=== PATIENT | male | born 1980 | race Caucasian/White ===

== ENCOUNTER 2025-11-20 23:14 | Emergency (ER) | payer MEDICAID, SELFPAY ==
--- NOTE | ~2025-11-20 | US_ITS ---
EXAMINATION: US ABDOMEN LIMITED HISTORY: RUQ; Gall Bladder; N/V; Tenderness TECHNIQUE: Real-time grayscale ultrasound imaging of the right upper quadrant was performed and images were reviewed. COMPARISON: Correlation is made with a CT of the abdomen performed earlier in the day. FINDINGS: Liver: The right lobe of the liver measures 19.2 cm in size. The left lobe of the liver measures 11.3 cm in size. The liver demonstrates increased echotexture, consistent with steatosis. No focal mass or intrahepatic biliary ductal dilatation is identified. There is normal hepatopedal flow in the portal vein. Gallbladder and biliary tree: The gallbladder is unremarkable, without evidence of calculi, wall thickening, or pericholecystic fluid. There is no sonographic Cavanaugh sign. The common bile duct is normal in caliber measuring 3 mm in diameter. Right Kidney: The right kidney measures 13.0 cm in length. The right kidney is unremarkable, without evidence of masses, hydronephrosis, or calculi. Pancreas: The pancreatic head, neck, and body are unremarkable. The pancreatic tail is obscured by bowel gas. Abdominal aorta and inferior vena cava: The visualized portions of the abdominal aorta and inferior vena cava are normal in caliber. There is no free fluid in the right upper quadrant. US/US abdomen limited IMPRESSION: Hepatomegaly and hepatic steatosis. No evidence of cholelithiasis. Electronically signed by: Murali Baig MD 11/21/2025 08:16 AM [facility]
--- NOTE | ~2025-11-20 | CT_ITS ---
CLINICAL HISTORY: RLQ Pain; Tenderness CT abdomen and pelvis with contrast Comparison: CT - CT ABDOMEN PELVIS W IV CON - 11/21/25 04:21 EST Findings: Dependent atelectasis. Hepatomegaly with fatty infiltration of the liver. Mild splenomegaly. The gallbladder, pancreas, and adrenal glands are unremarkable. No hydronephrosis or hydroureter is noted. Subcentimeter low-density foci are noted within the kidneys which are too small to characterize. No bowel obstruction, pneumoperitoneum, or pneumatosis. Fat containing umbilical hernia. Small retroperitoneal lymph nodes. Small hiatal hernia. Diverticulosis without evidence of diverticulitis. No evidence of acute appendicitis. Mild prostate gland enlargement. Degenerative change involving the skeletal system without evidence of acute abnormality. Normal caliber aorta. Arteriomegaly involving the celiac axis with hazy density within the surrounding fat suggesting possible vasculitis. No high-grade stenosis is noted. Opacification is noted of the vasculature. The SMA and SHANIKA appear patent. IMPRESSION: 1. 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 Correlate with pancreatic enzymes. 2. Hepatosplenomegaly with fatty infiltration of the liver. 3. Fat containing umbilical hernia. This document has been electronically signed by: Chip Cavanaugh MD on 11/21/2025 08:09:42
[2025-11-20 23:18] VITALS: BP 154/79; PULSE 83; RESP 20; TEMP 36.4; O2SAT 96; BMI 46.8
[2025-11-20 23:40] LABS: Hematocrit 45.0 % (42.0-52.0); Hemoglobin 15.7 g/dl (14.0-18.0); Imm Gran Abs Auto 0.04 X10*3/uL (0.00-0.03); Imm Gran Pct Auto 0.4 % (0.0-0.4); Lymphocytes Absolute Auto 3.4 X10*3/uL (1.2-4.9); MANUAL DIFF FLAG NO; Mean Corpuscular HGB Conc 34.9 g/dl (31.0-36.0); Mean Corpuscular Hemoglobin 30.7 pg (27.0-33.0); Mean Corpuscular Volume 88.1 fL (80.0-98.0); NRBC Abs Auto 0.000 X10*3/uL (0.0-0.012); NRBC Pct Auto 0.0 /100WBC (0.0-0.2); Platelet Count 226 X10*3/uL (160-400); Red Blood Count 5.11 X10*6/uL (4.60-5.80); White Blood Count 10.4 X10*3/uL (4.8-10.8)
[2025-11-20 23:54] LABS: Alanine Aminotransferase 55 U/L (0-40); Albumin Level 4.5 g/dL (3.5-5.0); Alkaline Phosphatase 68 U/L (39-117); Anion Gap 14 (12-20); Aspartate Amino Transferase 32 U/L (5-37); Blood Urea Nitrogen 12 mg/dL (9-16); Calcium 8.9 mg/dL (8.4-10.2); Carbon Dioxide 25 mmol/L (22-29); Chloride 106 mmol/L (96-108); Creatinine Clr Calc Pharmacy 127.5; Estimated Glomerular Filt Rate > 60; Potassium 4.0 mmol/L (3.3-5.1); Sodium 141 mmol/L (135-145); Total Protein 7.5 g/dL (6.5-8.0)
[2025-11-21 03:14] VITALS: BP 146/89; PULSE 75; RESP 16; TEMP 36.8; O2SAT 97
--- OUTSIDE RECORDS SUMMARY | 2025-11-21 03:50 | XMS_ITS | Clinical Summary ---
Author Organization [employer] Address [address] [place] [address] [address] [place] [address] Care Team Providers Care Net Sql Developer Name Role Phone Unavailable Primary Care Provider Unavailabl e Social History Tobacco Use Types Packs/Day Years Used Date Smoking Tobacco: Never Assessed Sex and Gender Information Value Date Recorded Sex Assigned at Not on file Legal Sex Male 9:17 PM EDT Gender Identity Not on file Sexual Orientation Not on file Plan of Treatment Health Maintenance Due Date Last Done Comments Depression Screening 1980 HIV Screening 1980 Lipid Panel 1980 SDOH Screening 1980 Disability Screening 1980 Alcohol/Substance Use Screening 1992 Tobacco Screening 1992 Family Planning (PISQ) 1995 HPV Vaccines (1 - Male 3-dos e series) 1995 Hepatitis C Screening 1998 DTaP/Tdap/Td Vaccines (1 - Tdap) 1999 Hepatitis B Vaccines (1 of 3 - 19+ 3-dose series) 1999 COVID-19 Vaccine (1 - 2024-2 6 season) 2025 Influenza Vaccine (#1) 2025 Zoster Vaccines (1 of 2) 2030 RSV Patients and Pa tients Aged 60 years or older (1 - 1-dose 75+ series) 2055 HIB Vaccines Aged Out No longer eligi ble based on patient's age to complete this topic Hepatitis A Vaccines Aged Out No long er eligible based on patient's age to complete this topic IPV Vaccines Aged Out No longer eligi ble based on patient's age to complete this topic Meningococcal B Vaccine Aged Out No l onger eligible based on patient's age to complete this topic Meningococcal Vaccine Aged Out No aldo rosario eligible based on patient's age to complete this topic Pneumococcal Vaccine: Pediat rics (0 to 5 Years) and At-Risk Patients (6 to 49) Years Aged Out No longer eligible b ased on patient's age to complete this topic RSV under 20 months Aged Out No longe r eligible based on patient's age to complete this topic Rotavirus Vaccines Aged Out No longer eligible based on patient's age to complete this topic
--- NOTE | 2025-11-21 04:01 | ED_ITS ---
HPI - Abdominal Pain General Chief Complaint: Abdominal Pain Stated Complaint: abd pain Time Seen by Provider: 11/21/25 03:55 Source: patient Mode of arrival: ambulatory Limitations: no limitations History of Present Illness ED Provider: Grzegorz ESPINAL HPI narrative: The patient is a 44-year-old male with a history of appendectomy and gastritis, presenting to the Emergency Department with waxing and waning mid-epigastric abdominal pain that increased on Thursday after eating fatty food (barbecue ribs) at his son?s birthday alliance party. He describes the pain as a constant 6?7/10 that increases with eating and also deep respiration. Patient reports the pain occasionally radiates to the back/right flank. Pain also increases with lying flat. The patient denies any recent fall or other trauma, denies recent sick contacts. He reports associated nonbloody vomiting on Thursday and again today, prompting ED evaluation. He denies associated fever, diarrhea, hematemesis, melena, urinary symptoms, cough, hemoptysis, pleurisy, or shortness of breath. He reports a history of intermittent acid reflux for which he takes omeprazole as needed. Surgical history is significant for appendectomy in 1994. He takes no daily medications, denies alcohol and tobacco use. Related Data Previous Rx's ?Medication ?Instructions ?Recorded aluminum-mag hydroxide-simethicone 10 ml PO TID PRN in digestion 11/21/25 400 mg-400 mg-40 mg/5 mL oral susp #3,000 mL (Maalox Maximum Strength) omeprazole 40 mg capsule,delayed 40 mg PO DAILY #20 ca ps 11/21/25 release Allergies Allergy/AdvReac Type Severity Reaction Status Date / Time No Known Allergies Allergy Verified 11/20/25 23:23 Review of Systems Review of Systems Yes all other systems are reviewed and are negative [facility] Social History Social History Smoked in Last 30 Days: No Use of substances other than those prescribed or required for medical reasons: No Advance Directives: No Advance Directives Information Provided: Yes Physical Exam ED Vital Signs: Vital Signs - 24 hr 11/20/25 23:18 11/21/25 03:14 11/21/25 05:23 Temperature 97.6 F 98.2 F 98.3 F Pulse Rate 83 75 68 Respiratory Rate 20 16 16 Blood Pressure 154/79 H 146/89 H 133/68 Pulse Oximetry 96 97 93 Oxygen Delivery Method Room Air Room Air Room Air 11/21/25 08:39 Temperature 97.9 F Pulse Rate 70 Respiratory Rate 16 Blood Pressure 148/84 H Pulse Oximetry 95 Oxygen Delivery Method Room Air BMI result Body Mass Index 46.8 CONSTITUTIONAL: The patient appears non-toxic, well nourished and in no acute distress. Vital signs as documented. HEAD: Atraumatic, normocephalic. EYES: EOMs grossly intact, pupils equal, conjunctiva clear, no exudate. ENT: Nares patent, no discharge. Airway patent, no audible stridor, visible mucosa is pink and moist without noted lesions. NECK: Trachea is midline, no obvious masses or gross abnormalities. CHEST: Symmetric movement, normal appearance. LUNGS: LS present and CTAB, no w/r/r. Non-labored work of breathing. CARDIAC: Regular Rhythm, S1/S2 appreciated, no murmurs, rubs or gallops. ABDOMEN: Abdomen soft x4 quadrants, moderate tenderness of the right upper and lower quadrants and epigastrium, negative rebound, negative Cavanaugh's, no palpable masses or organomegaly. : Deferred. EXTREMITIES: Normal tone, moves all extremities spontaneously without reported pain. No obvious acute injury or deformity noted. NEURO: Alert and oriented x3, CN II-XII appear grossly intact. Cerebellar Functioning grossly intact. No obvious sensory or motor deficits. Speech clear and appropriate. PSYCH: normal affect, appropriate eye contact, fluid speech, with appropriate response to questioning. No reported suicidality or homicidality. SKIN: Warm, dry, color appropriate, normal turgor. No rashes noted. Course Reevaluation(s) Reevaluation #1: 44-year-old male came in for evaluation of epigastric pain after eating a fatty food, ultrasound shows no acute gallbladder obstructive disease or stones, CT of the abdomen and pelvis reveals the following: . 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 Correlate with pancreatic enzymes. 2. Hepatosplenomegaly with fatty infiltration of the liver. 3. Fat containing umbilical hernia. Not sure the significance of the above finding on a CT case discussed with Dr. Davis ( vascular taxation accountant) who recommended if the patient has no pain he can be discharged to follow-up with him as an outpatient. Also patient should follow- up with GI. Will start on omeprazole, patient was instructed to avoid eating fatty food. Time: 09:16 Medical Decision Making Medical Decision Making MDM Narrative: 4:43 AM 11/21/2025 (Ene ESPINAL): The patient is a 44-year-old male with a history of appendectomy and gastritis, presenting to the Emergency Department with waxing and waning mid-epigastric abdominal pain that increased on Thursday after eating fatty food (barbecue ribs) at his son?s birthday alliance party. He describes the pain as a constant 6?7/10 that increases with eating and also deep respiration. Patient reports the pain occasionally radiates to the back/right flank. Pain also increases with lying flat. The patient denies any recent fall or other trauma, denies recent sick contacts. He reports associated nonbloody vomiting on Thursday and again today, prompting ED evaluation. He denies associated fever, diarrhea, hematemesis, melena, urinary symptoms, cough, hemoptysis, pleurisy, or shortness of breath. He reports a history of intermittent acid reflux for which he takes omeprazole as needed. Surgical history is significant for appendectomy in 1994. He takes no daily medications, denies alcohol and tobacco use. On exam patient has mild tenderness of the right upper and lower quadrants, and the epigastrium. Negative CVAT bilaterally. The patient is nontoxic appearing. The patient's laboratory evaluation is reassuring, no leukocytosis, anemia, electrolyte abnormality, or ROBERTO CARLOS. The patient's LFTs are largely unremarkable with the exception of ALT 55. The patient's urinalysis shows trace blood, no evidence of infection. The patient will be sent for CT abdomen and pelvis and we will add on lipase. We will treat patient's symptoms with IV fluids and Toradol while awaiting results of imaging. Admission/Observation Consideration of admission/observation: Escalation of care including admission/observation considered Lab Data MDM Lab Attestation statement: I reviewed the patient's lab results. 11/20/25 23:35 11/20/25 23:35 Labs: Lab Results 11/20/25 11/21/25 Range/Units 23:35 04:17 WBC 10.4 (4.8-10.8) X10*3/uL RBC 5.11 (4.60-5.80) X10*6/uL Hgb 15.7 (14.0-18.0) g/dl Hct 45.0 (42.0-52.0) % MCV 88.1 (80.0-98.0) fL MCH 30.7 (27.0-33.0) pg MCHC 34.9 (31.0-36.0) g/dl RDW 12.7 (11.0-16.0) % Plt Count 226 (160-400) X10*3/uL MPV 10.0 (9.4-12.4) fL Immature Gran % (Auto) 0.4 (0.0-0.4) % Neut % (Auto) 54.8 (45-73) % Lymph % (Auto) 32.7 (20-40) % Sharkey % (Auto) 8.4 (2-11) % Eos % (Auto) 2.7 (0-4) % Baso % (Auto) 1.0 (0-2) % Lymph # (Auto) 3.4 (1.2-4.9) X10*3/uL Sharkey # (Auto) 0.9 (0.1-1.2) X10*3/uL Eos # (Auto) 0.3 (0.0-0.4) X10*3/uL Baso # (Auto) 0.1 (0.0-0.2) X10*3/uL Abs Immat Gran (auto) 0.04 H (0.00-0.03) X10*3/uL Absolute Neuts (auto) 5.7 (2.0-8.3) x10*3/uL Absolute Nucleated RBC 0.000 (0.0-0.012) X10*3/uL Nucleated RBC % (auto) 0.0 (0.0-0.2) /100WBC Sodium 141 (135-145) mmol/L Potassium 4.0 (3.3-5.1) mmol/L Chloride 106 (96-108) mmol/L Carbon Dioxide 25 (22-29) mmol/L Anion Gap 14 (12-20) BUN 12 (9-16) mg/dL Creatinine 0.95 (0.5-1.4) mg/dL Estim Creat Clear Calc 127.5 Estimated GFR > 60 Random Glucose 105 (60-115) mg/dL Calcium 8.9 (8.4-10.2) mg/dL Total Bilirubin 0.8 (0.0-1.0) mg/dL AST 32 (5-37) U/L ALT 55 H (0-40) U/L Alkaline Phosphatase 68 (39-117) U/L Total Protein 7.5 (6.5-8.0) g/dL Albumin 4.5 (3.5-5.0) g/dL Lipase 25 (8-78) U/L Urine Color Yellow Urine Appearance Clear Urine pH 5.5 (5.0-9.0) Ur Specific [place] 1.020 (1.005-1.025) Urine Protein Negative (Neg-Trace) mg/dL Urine Glucose (UA) Negative (Negative) mg/dL Urine Ketones Negative (Negative) mg/dL Urine Blood Trace H (Negative) Urine Nitrite Negative (Negative) Ur Leukocyte Esterase Negative (Negative) Urine RBC 0-2 (0-2) /HPF Urine WBC 0-5 (0-5) /HPF Ur Squamous Epith Cells 0-2 (0-2) /HPF Urine Bacteria None Seen (None Seen) Hyaline Casts 0-2 (0-2) /LPF Medications Administered Discontinued Medications Generic Name Dose Route Start Last Admin Trade Name Freq PRN Reason Stop Dose Admin Sodium Chloride 1,000 mls @ 999 mls/hr 11/21/25 04:30 11/21/25 06:26 Ns IV 11/21/25 05:30 Infused .Q1H1M CELIA Infusion Iohexol 100 ml 11/21/25 04:39 11/21/25 04:39 Iohexol 350 Mg/Ml 100 Ml Infus..Btl IV 11/21/25 04:40 100 ml ONCE ONE Administration Ketorolac Tromethamine 15 mg 11/21/25 04:28 11/21/25 04:48 Ketorolac Tromethamine 15 Mg/Ml Vial IVPUSH 11/21/25 04:29 15 mg ONCE ONE Administration Discharge Plan Discharge Clinical Impression: Gastritis, Abnormal CT of the abdomen Patient Disposition: Home, Self-Care Instructions: Gastritis (ED) Additional Instructions: avoid greasy food, follow-up with Dr. Davis, follow-up with GI. Prescriptions: New omeprazole 40 mg capsule,delayed release(DR/EC) 40 mg PO DAILY Qty: 20 0RF alum-mag hydroxide-simeth [Maalox Maximum Strength] 400-400-40 mg/5 mL suspension 10 ml PO TID PRN (Reason: indigestion) Qty: 3000 0RF Referrals: [place] [Primary Care Provider, Primary Care] Jeronimo Davis MD [Physician, Vascular Surgery] Yanira Ferraro MD [Physician, Gastroenterology] Print Language: [place]
[2025-11-21 04:26] LABS: Appearance Urine Clear; Glucose Urine UA Negative (Negative); PH 5.5 (5.0-9.0); Specific Gravity - Urine 1.020 (1.005-1.025); UMIC TRIGGER UACC YES
[2025-11-21] MEDS: iohexoL 350 MG/ML 100 ML INFUS..BTL IV (04:39)
[2025-11-21 05:23] VITALS: BP 133/68; PULSE 68; RESP 16; TEMP 36.8; O2SAT 93
[2025-11-21 06:16] LABS: Lipase 25 U/L (8-78)
[2025-11-21 08:39] VITALS: BP 148/84; PULSE 70; RESP 16; TEMP 36.6; O2SAT 95
[2025-11-21 10:01] VITALS: BP 148/84; PULSE 70; RESP 16; TEMP 36.6; O2SAT 95
== END 2025-11-21 10:02 | disposition home or self-care (01) ==
PROVIDERS: Physician Assistant; Emergency Provider Emergency Medicine; PCP Dentist General Practice
DX: K29.70 Gastritis, unspecified, without bleeding (principal); R93.5 Abnormal findings on diagnostic imaging of other abdominal regions, including retroperitoneum; R10.13 Epigastric pain; R11.2 Nausea with vomiting, unspecified; K76.0 Fatty (change of) liver, not elsewhere classified
CPT/HCPCS: 36415; 74177; 76705; 80053; 81001; 83690; 85025; 96361; 96374; 99285; J1885; Q9967

== ENCOUNTER → 2025-11-21 04:02 | Outpatient (BNV) | payer MEDICAID, SELFPAY | PROVIDERS: Emergency Provider Emergency Medicine; PCP Dentist General Practice; Visit Provider Radiology Diagnostic Radiology | DX: K44.9 Diaphragmatic hernia without obstruction or gangrene (principal); K76.0 Fatty (change of) liver, not elsewhere classified; R16.0 Hepatomegaly, not elsewhere classified | CPT/HCPCS: 74177; 76705 ==